=== PATIENT | female | born 1990 | race Caucasian/White ===

== ENCOUNTER → 2017-10-30 16:18 | Outpatient (CLI) | payer BC, SELFPAY ==
[2017-10-30 20:01] LABS: Chlamydia Trachomatis by PCR Negative (Negative); Neisserai gonorrhoeae by PCR Negative (Negative); Probe Check PASS; Sample Adequacy Control PASS; Specimen Processing Control PASS
[2017-11-05 13:44] LABS: HPV Reflexed? NOT INDICATED
== END ==
PROVIDERS: Visit Provider Obstetrics & Gynecology
DX: Z12.4 Encounter for screening for malignant neoplasm of cervix (principal); Z11.3 Encounter for screening for infections with a predominantly sexual mode of transmission
CPT/HCPCS: 87491; 87591; 88175; G0145; J2405

== ENCOUNTER → 2017-11-11 13:00 | Outpatient (CLI) | payer BC, SELFPAY ==
--- NOTE | 2017-11-11 13:00 | DT_ITS ---
This patient was seen during an EMR downtime November 10, 2017 - November 17, 2017. This patient may have a combination of paper and electronic documentation or all paper documentation. All documentation is viewable within the e-chart portion of [facility] for each patient visit.
[2017-11-18 05:56] LABS: hCG Titer Quant., Serum 11956 mIU/mL (<9 non-preg)
== END ==
PROVIDERS: Visit Provider Obstetrics & Gynecology
DX: N91.2 Amenorrhea, unspecified (principal)
CPT/HCPCS: 36415; 84702

== ENCOUNTER → 2017-11-15 10:13 | Outpatient (CLI) | payer BC, SELFPAY ==
--- NOTE | 2017-11-15 10:13 | DT_ITS ---
This patient was seen during an EMR downtime November 10, 2017 - November 17, 2017. This patient may have a combination of paper and electronic documentation or all paper documentation. All documentation is viewable within the e-chart portion of [employer] for each patient visit.
[2017-11-15 12:39] LABS: hCG Titer Quant., Serum 5261 mIU/mL (<9 non-preg)
== END ==
PROVIDERS: Visit Provider Obstetrics & Gynecology
DX: N91.2 Amenorrhea, unspecified (principal)
CPT/HCPCS: 36415; 84702

== ENCOUNTER 2017-11-17 08:25 | Day surgery (SDC) | payer BC, SELFPAY ==
--- NOTE | 2017-11-17 | POC_PTH ---
PATIENT: GINA CONKLIN [place] [facility] [id number] AGE/SX: 27/F ROOM: RE11/17/[address]: Dr. Leo Navarrete MD : 1990 BED: DIS: 11/17/2017 SPEC #: [id number] RECD: 11/17/17 14:01 STATUS: PATO FRANZEdgar #: [id number] CHARITY: 11/17/17 00:[address]: Leo Navarrete DEPT: SURGICAL PATHOLOGY RECD BY: Deven Matamoros ENTERED: 11/17/17 14:02 SP TYPE: PROD CONC OTHR DR: Dr. Cruzito Irwin MD Tissues: Product of conception, NOS Procedures: Surgery Specimen Level IV HEADER OPERATION: Suction D & C PRE-OP DIAGNOSIS: Missed TISSUE SUBMITTED: Products of conception MICROSCOPIC DIAGNOSIS Products of conception: Decidua and gestational endometrium. See comment. DONAVAN:felicita 11/18/17 COMMENT The entire specimen is examined. Chorionic villi are not identified in the submitted specimen. Results called to Dr. Navarrete?s office 11/18/17. MICROSCOPIC DESCRIPTION Slides are reviewed. GROSS DESCRIPTION Received in fixative is one container labeled with the patient's name and designated products of conception. The specimen consists of multiple fragments of ugarte hemorrhagic soft tissue that in aggregate measure 5 x 3 x 0.3 cm. No tissue is identified. The entire specimen is submitted in two cassettes. / SJ:felicita 11/17/17 TC:5 CPT: 96707
--- NOTE | 2017-11-17 08:25 | DT_ITS ---
This patient was seen during an EMR downtime November 10, 2017 - November 17, 2017. This patient may have a combination of paper and electronic documentation or all paper documentation. All documentation is viewable within the e-chart portion of [employer] for each patient visit.
== END 2017-11-17 12:12 | disposition home or self-care (01) ==
PROVIDERS: Family Provider Family Medicine; PCP Family Medicine; Visit Provider Obstetrics & Gynecology
PROC: (CPT 59812; principal; 2017-11-17 07:15)
DX: O02.0 Blighted ovum and nonhydatidiform mole (principal); O03.4 Incomplete spontaneous abortion without complication; Z3A.00 Weeks of gestation of pregnancy not specified
CPT/HCPCS: 01965; 59812; 88305; J7120

== ENCOUNTER → 2018-02-03 18:03 | Outpatient (CLI) | payer BC, SELFPAY | PROVIDERS: Family Provider Family Medicine; PCP Family Medicine; Visit Provider Obstetrics & Gynecology | DX: N39.0 Urinary tract infection, site not specified (principal) | CPT/HCPCS: 87086; 87088 ==

== ENCOUNTER → 2018-02-12 13:05 | Outpatient (CLI) | payer BC, SELFPAY ==
[2018-02-12 16:39] LABS: Chlamydia Trachomatis by PCR Negative (Negative); Neisserai gonorrhoeae by PCR Negative (Negative); Probe Check PASS; Sample Adequacy Control PASS; Specimen Processing Control PASS
== END ==
PROVIDERS: Visit Provider Obstetrics & Gynecology
DX: Z11.3 Encounter for screening for infections with a predominantly sexual mode of transmission (principal)
CPT/HCPCS: 87491; 87591

== ENCOUNTER → 2018-04-06 16:27 | Outpatient (CLI) | payer BC, SELFPAY ==
[2018-04-06 17:14] LABS: Absolute Lymphocyte Count 1.89 X10^3/ul (0.83-4.51); Absolute Neutrophil Count 5.7 X10^3/uL (2.0-7.7); Basophil# 0.01 X10^3/uL; Basophil% 0.1 % (0-1); Eosinophil# 0.05 X10^3/uL; Eosinophils% 0.6 % (0-5); Hematocrit 40.3 % (37-47); Hemoglobin 13.7 g/dl (12.0-15.0); Lymphocyte # 1.89 X10^3/ul (4.0); Lymphocyte % 23.5 % (19-41); Mean Corpuscular Volume 88.4 fL (81-99); Mean Platelet Vol. 11.4 fl (6.2-12.0); Monocyte# 0.43 X10^3/uL; Monocyte% 5.3 % (0-10); Neutrophil # 5.65 X10^3/uL (2.7-7.7); Neutrophil % 70.3 % (47-70); Platelet Count 244 K/mm3 (150-450); RBC Distribution Width CV 13.8 % (11.6-14.6); RBC Distribution Width SD 43.9 fl (35.1-43.9); Red Blood Count 4.56 M/mm3 (4.2-5.4); White Blood Count 8.1 K/mm3 (4.4-11.0)
[2018-04-06 17:17] LABS: POSITIVE COUNT NO; POSITIVE DIFFERENTIAL NO; POSITIVE MORPHOLOGY NO
[2018-04-06 17:29] LABS: Color, Urine Yellow (Yellow); Glucose, Dipstick Normal (Normal); Ketone-Dipstick Negative (Negative); Leukocyte Esterase-Dipstick 100 /ul (Negative); Nitrite-Dipstick Negative (Negative); Occult Blood-Urine 10 /ul (Negative); Protein-Dipstick Negative (Negative); Specific Gravity, Urine 1.025 (1.002-1.030); Urine Bilirubin Dipstick Negative (Negative); Urine Clarity Sl. Cloudy (Clear); Urine Urobilinogen Normal (Normal)
[2018-04-06 17:44] LABS: Thyroid Stim Hormone (TSH) 1.12 uIU/mL (0.358-3.74)
[2018-04-06 17:53] LABS: Amphetamine Urine VISTA NEGATIVE (<1000 ng/mL); Barbiturate Urine VISTA NEGATIVE (< 200 ng/mL); Benzodiazepine Urine VISTA NEGATIVE (< 200 ng/mL); Cocaine Urine VISTA NEGATIVE (< 300 ng/mL); Ecstacy Urine VISTA NEGATIVE (< 500 ng/mL); Methadone Urine VISTA NEGATIVE (< 300 ng/mL); PCP Urine VISTA NEGATIVE (< 25 ng/mL); THC Urine VISTA NEGATIVE (< 50 ng/mL); Vista UDS pH Range 5
[2018-04-06 18:37] LABS: HIV - WCH Non-Reactive (Nonreactive); Rubella IgG 170.9 IU/mL
[2018-04-08 10:24] LABS: HEPATITIS B SURFACE AG Negative (Negative); Hep C Antibodies <0.1 s/co ratio (0.0-0.9)
[2018-04-10 01:58] LABS: Prenatal RPR NONREACTIVE (NONREACTIVE)
== END ==
PROVIDERS: Visit Provider Obstetrics & Gynecology
DX: Z34.81 Encounter for supervision of other normal pregnancy, first trimester (principal)
CPT/HCPCS: 36415; 80307; 81002; 84443; 85025; 86703; 86762; 86803; 87340

== ENCOUNTER → 2018-04-27 17:14 | Outpatient (CLI) | payer BC, SELFPAY ==
[2018-04-30 04:09] LABS: AFP Value-EIA 29.2 ng/mL (.); Comment Report (.); DIA MoM Value 2.56 (.); DIA Value-EIA 358.61 pg/mL (.); DSR (By Age) 724 (.); DSR (Second Trimester) 555 (.); Gestat. Age Based On As provided (.); Gestational Age 15.3 WEEKS (.); Insulin Dep Diabetes No (.); Maternal Age At EDD 29.7 yr (.); hCG MoM 3.63 (.)
== END ==
PROVIDERS: Visit Provider Obstetrics & Gynecology
DX: Z34.81 Encounter for supervision of other normal pregnancy, first trimester (principal)
CPT/HCPCS: 36415; 82105; 82677; 84702; 86336

== ENCOUNTER → 2018-07-24 10:06 | Outpatient (CLI) | payer BC, SELFPAY ==
[2018-07-24 11:40] LABS: Hematocrit 35.2 % (37-47); Hemoglobin 11.5 g/dl (12.0-15.0); Mean Corp Hgb Conc 32.7 g/gl (32-36); Mean Corpuscular Volume 94.9 fL (81-99); Mean Platelet Vol. 11.2 fl (6.2-12.0); Platelet Count 203 K/mm3 (150-450); RBC Distribution Width CV 13.1 % (11.6-14.6); RBC Distribution Width SD 43.6 fl (35.1-43.9); Red Blood Count 3.71 M/mm3 (4.2-5.4); White Blood Count 6.8 K/mm3 (4.4-11.0)
[2018-07-24 11:41] LABS: Scan Indicated on CBC? Y/N NO
[2018-07-24 13:38] LABS: Glucose Challenge Gest 1H 50g 142 mg/dL (70-140)
== END ==
PROVIDERS: Visit Provider Obstetrics & Gynecology
DX: Z34.83 Encounter for supervision of other normal pregnancy, third trimester (principal)
CPT/HCPCS: 36415; 82950; 85027

== ENCOUNTER → 2018-07-31 06:47 | Outpatient (CLI) | payer BC, SELFPAY ==
[2018-07-31 07:54] LABS: Glucose GTT-Gestation. Fasting 98 mg/dL (<105)
[2018-07-31 08:51] LABS: Glucose GTT-Gestational 1 Hr 160 mg/dL (<190)
[2018-07-31 10:43] LABS: Glucose GTT-Gestational 2 Hr 159 mg/dL (<165)
[2018-07-31 10:50] LABS: Glucose GTT-Gestational 3 Hr 134 L (<145)
== END ==
PROVIDERS: Family Provider Family Medicine; PCP Family Medicine; Referring Provider Obstetrics & Gynecology; Visit Provider Obstetrics & Gynecology
DX: O24.912 Unspecified diabetes mellitus in pregnancy, second trimester (principal); Z3A.00 Weeks of gestation of pregnancy not specified
CPT/HCPCS: 36415; 82951; 82952

== ENCOUNTER 2018-09-07 11:20 | Outpatient (CLI) | payer BC, SELFPAY ==
[2018-09-07 12:45] VITALS: BMI 36.1
[2018-09-07 13:23] LABS: Mucous, Urine 0 SEEN /hpf (<or=2+); Red Blood Cells-Urine 0 SEEN /hpf (0-5)
[2018-09-07 13:33] LABS: Color, Urine Yellow (Yellow); Glucose, Dipstick Normal (Normal); Ketone-Dipstick Negative (Negative); Leukocyte Esterase-Dipstick 500 /ul (Negative); Nitrite-Dipstick Negative (Negative); Occult Blood-Urine Negative /ul (Negative); Protein-Dipstick Negative (Negative); Urine Bilirubin Dipstick Negative (Negative); Urine Clarity Cloudy (Clear); Urine Urobilinogen Normal (Normal)
[2018-09-07] MEDS: Betamethasone/Betamethasone 30 MG/5 ML Vial 12 MG IM (13:33)
[2018-09-07 13:43] LABS: Bacteria 2+ /hpf (None Seen); Squamous Epithelial Cells - UA 0-5 SEEN /hpf (5-10); White Blood Cells 25-50 SEEN /hpf (0-5)
--- NOTE | 2018-09-07 17:53 | OB.TRI.NOTE ---
History of Present Illness Date of Service: 09/07/18 Was patient seen by the physician?: Yes Reason For Visit: R/O LABOR Date of Service: 09/07/18 Final GEOFF: 10/16/18 Final GEOFF Source: US <20 weeks Gestational age: 34 Weeks and 3 Days History of Present Illness: 28 yo with h/o prior 35 wk delivery. presents for labor check with CC of off and on cramping starting 3 d ago. not sure if labor or not. Offered and declined weekly progesterone injections . denies any N/V/D no UTI sx. Cervix closed at last appt with Dr Navarrete. Allergies sulfamethoxazole [From Bactrim] Adverse Reaction (Verified 12/30/16 01:34) Hives trimethoprim [From Bactrim] Adverse Reaction (Verified 12/30/16 01:34) Hives Laboratory Studies: Laboratory Tests 09/07/18 Range/Units 13:15 Urine Color Yellow (Yellow) Urine Clarity Cloudy (Clear) Urine pH 7.0 (5.0 - 8.0) Ur Specific [place] 1.010 (1.002-1.030) Urine Protein Negative (Negative) mg/dl Urine Glucose (UA) Normal (Normal) mg/dl Urine Ketones Negative (Negative) mg/dl Urine Occult Blood Negative (Negative) /ul Urine Nitrite Negative (Negative) Urine Bilirubin Negative (Negative) mg/dL Urine Urobilinogen Normal (Normal) mg/dl Ur Leukocyte Esterase 500 H (Negative) /ul Urine RBC 0 SEEN (0-5) /hpf Urine WBC 25-50 SEEN (0-5) /hpf Ur Squamous Epith Cells 0-5 SEEN (5-10) /hpf Urine Bacteria 2+ (None Seen) /hpf Urine Mucus 0 SEEN (<or=2+) /hpf Review of Systems Constitutional: Denies: Anorexia Gastrointestinal: Denies: Constipation, Diarrhea Genitourinary: Reports: Frequency - drinking a lot. Denies: Dysuria Physical Exam General: Alert, Oriented x3, Cooperative, No apparent distress HEENT: Atraumatic Abdomen: Soft, Non Tender, Gravid Neurological: Cranial nerves II-XII grossly intact SALES DEVELOPMENT MANAGER: Normal external genitalia Presentation: Cephalic Cervix Dilation (cm): 2 Station: -3 Effacement (%): 50 - no change in dilation 75% effaced then after all day observation. NST - FHR Rate Baby A Baseline: 130-140s avg with accels. Variability:: Moderate Accelerations:: 15 x 15 Decelerations:: None NST Reactive:: Yes, Appropriate for gestational age FHR Category:: Category I Uterine Activity:: Irreg UCs poor pickle maker at times. q 3-4 mins at times. Off and on per pt Impression/Plan 34 3/7 wk UCs vs early prodromal labor. no change in dilation on observation 2 cm. Further effacement noted. Vtx and high Betamethasone given UA sent and suspect UTI. Will send for culture Keflex 500 mg po bid Procardia 20 mg po x one now RX sent for Procardia 10 mg po q 4 hr prn UCs. Home if stable. Return on 09/08/18 for second dose of betamethasone Keflex bid Bedrest at home until 35 wks. Office appt at 35 wks. 09/10/18 as planned. Return to hospital if inc s/sx of labor prior to 09/10/18 visit.
--- NOTE | 2018-09-07 17:57 | OB.TRI.HP_ITS ---
History of Present Illness Date of Service: 09/07/18 Was patient seen by the physician?: Yes Reason For Visit: R/O LABOR Date of Service: 09/07/18 Final GEOFF: 10/16/18 Final GEOFF Source: US <20 weeks Gestational age: 34 Weeks and 3 Days History of Present Illness: 28 yo with h/o prior 35 wk delivery. presents for labor check with CC of off and on cramping starting 3 d ago. not sure if labor or not. Offered and declined weekly progesterone injections . denies any N/V/D no UTI sx. Cervix closed at last appt with Dr Navarrete. Allergies sulfamethoxazole [From Bactrim] Adverse Reaction (Verified 12/30/16 01:34) Hives trimethoprim [From Bactrim] Adverse Reaction (Verified 12/30/16 01:34) Hives Laboratory Studies: Laboratory Tests 09/07/18 Range/Units 13:15 Urine Color Yellow (Yellow) Urine Clarity Cloudy (Clear) Urine pH 7.0 (5.0 - 8.0) Ur Specific [place] 1.010 (1.002-1.030) Urine Protein Negative (Negative) mg/dl Urine Glucose (UA) Normal (Normal) mg/dl Urine Ketones Negative (Negative) mg/dl Urine Occult Blood Negative (Negative) /ul Urine Nitrite Negative (Negative) Urine Bilirubin Negative (Negative) mg/dL Urine Urobilinogen Normal (Normal) mg/dl Ur Leukocyte Esterase 500 H (Negative) /ul Urine RBC 0 SEEN (0-5) /hpf Urine WBC 25-50 SEEN (0-5) /hpf Ur Squamous Epith Cells 0-5 SEEN (5-10) /hpf Urine Bacteria 2+ (None Seen) /hpf Urine Mucus 0 SEEN (<or=2+) /hpf Review of Systems Constitutional: Denies: Anorexia Gastrointestinal: Denies: Constipation, Diarrhea Genitourinary: Reports: Frequency - drinking a lot. Denies: Dysuria Physical Exam General: Alert, Oriented x3, Cooperative, No apparent distress HEENT: Atraumatic Abdomen: Soft, Non Tender, Gravid Neurological: Cranial nerves II-XII grossly intact QUALITY ENGINEER MEDICAL DEVICE: Normal external genitalia Presentation: Cephalic Cervix Dilation (cm): 2 Station: -3 Effacement (%): 50 - no change in dilation 75% effaced then after all day observation. NST - FHR Rate Baby A Baseline: 130-140s avg with accels. 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 q 3-4 mins at times. Off and on per pt Impression/Plan 34 3/7 wk UCs vs early prodromal labor. no change in dilation on observation 2 cm. Further effacement noted. Vtx and high Betamethasone given UA sent and suspect UTI. Will send for culture Keflex 500 mg po bid Procardia 20 mg po x one now RX sent for Procardia 10 mg po q 4 hr prn UCs. Home if stable. Return on 09/08/18 for second dose of betamethasone Keflex bid Bedrest at home until 35 wks. Office appt at 35 wks. 09/10/18 as planned. Return to hospital if inc s/sx of labor prior to 09/10/18 visit.
[2018-09-07] MEDS: NIFEdipine 10 MG Capsule 20 MG PO (18:18)
[2018-09-07] MEDS: Cephalexin 250 MG Capsule 500 MG PO (18:54)
== END 2018-09-07 19:53 | disposition home or self-care (01) ==
LOC: WPOUT 11:39 → WP 11:40
PROVIDERS: Family Provider Family Medicine; PCP Family Medicine; Referring Provider Obstetrics & Gynecology; Visit Provider Obstetrics & Gynecology
DX: O09.213 Supervision of pregnancy with history of pre-term labor, third trimester (principal); Z3A.34 34 weeks gestation of pregnancy
CPT/HCPCS: 59025; 59050; 81001; 87086; 87088; 99218; G0378; J0702

== ENCOUNTER 2018-09-08 13:45 | Outpatient (CLI) | payer BC, SELFPAY ==
[2018-09-07 12:45] VITALS: BMI 36.1
[2018-09-08 13:52] VITALS: BMI 35.6
[2018-09-08] MEDS: Betamethasone/Betamethasone 30 MG/5 ML Vial 12 MG IM (14:37)
--- NOTE | 2018-09-09 07:56 | OB.TRI.NOTE ---
History of Present Illness Date of Service: 09/08/18 Was patient seen by the physician?: No Reason For Visit: CELESTONE INJECTION Date of Service: 09/08/18 Final GEOFF: 10/16/18 Final GEOFF Source: US <20 weeks Gestational age: 34 Weeks and 5 Days History of Present Illness: Observed for labor on 09/07 given first celestone injection. Returns today for second celestone injection. Allergies sulfamethoxazole [From Bactrim] Adverse Reaction (Verified 09/08/18 13:52) Hives trimethoprim [From Bactrim] Adverse Reaction (Verified 09/08/18 13:52) Hives Physical Exam General: Alert, Oriented x3, Cooperative, No apparent distress Abdomen: Soft, Non Tender, Non-Distended, Gravid, Appropriate for Gestational Age NST - FHR Rate Baby A Baseline: not done Impression/Plan 35+ weeks for second celestone injection. No signs of labor.
== END 2018-09-08 15:15 | disposition home or self-care (01) ==
LOC: WPOUT 13:49 → WP 13:51
PROVIDERS: Family Provider Family Medicine; PCP Family Medicine; Referring Provider Obstetrics & Gynecology; Visit Provider Obstetrics & Gynecology
DX: O60.03 Preterm labor without delivery, third trimester (principal); Z3A.34 34 weeks gestation of pregnancy
CPT/HCPCS: 96372; 99218; G0378; J0702

== ENCOUNTER → 2018-09-11 13:52 | Outpatient (CLI) | payer BC, SELFPAY ==
[2018-09-08 13:52] VITALS: BMI 35.6
== END ==
PROVIDERS: Visit Provider Obstetrics & Gynecology
DX: Z36.85 Encounter for antenatal screening for Streptococcus B (principal)
CPT/HCPCS: 87081

== ENCOUNTER 2018-10-04 15:30 | Outpatient (CLI) | payer BC, SELFPAY ==
[2018-10-04 15:46] VITALS: BMI 35.9
[2018-10-04 16:26] LABS: ROM Internal Control Test YES-OK TO RESULT pt. (Internal QC); ROM Patient Test Negative (Negative)
--- NOTE | 2018-10-14 09:09 | OB.TRI.NOTE ---
History of Present Illness Date of Service: 10/04/18 Was patient seen by the physician?: No Reason For Visit: RULE OUT SROM Date of Service: 10/04/18 Final GEOFF: 10/16/18 Final GEOFF Source: US <20 weeks Gestational age: 38 Weeks and 2 Days History of Present Illness: 38+ week intrauterine presents with some leaking of fluid. Concerned that her water may be broke. Allergies sulfamethoxazole [From Bactrim] Adverse Reaction (Verified 10/08/18 16:16) Hives trimethoprim [From Bactrim] Adverse Reaction (Verified 10/08/18 16:16) Hives - Pertinent Past Medical History Medical History: Past Medical History (Last Updated 10/09/18 @ 07:45 by Mandie Ray MD) premature rupture of membranes (PPROM) delivered, current hospitalization (Inactive) 35 weeks gestation of (Inactive) Laboratory Studies: Laboratory Tests 10/04/18 Range/Units 16:00 Vag Amniotic Fld Detect Negative (Negative) NST - FHR Rate Baby A NST Reactive:: Yes FHR Category:: Category I Impression/Plan 38+ week intrauterine with vaginal discharge. ROM test negative. Reactive nonstress test. Continue routine care.
== END 2018-10-04 19:00 | disposition home or self-care (01) ==
LOC: WPOUT 15:32 → WP 15:34
PROVIDERS: Visit Provider Obstetrics & Gynecology
DX: O26.893 Other specified pregnancy related conditions, third trimester (principal); N89.8 Other specified noninflammatory disorders of vagina; Z3A.38 38 weeks gestation of pregnancy
CPT/HCPCS: 59025; 59050; 84112; 99218; G0378

== ENCOUNTER 2018-10-08 15:15 | Inpatient (IN) | payer BC, SELFPAY ==
[2018-10-08 14:41] VITALS: BMI 36.2
[2018-10-08 16:08] LABS: Absolute Lymphocyte Count 1.98 X10^3/ul (0.83-4.51); Absolute Neutrophil Count 6.2 X10^3/uL (2.0-7.7); Basophil# 0.01 X10^3/uL; Basophil% 0.1 % (0-1); Eosinophil# 0.02 X10^3/uL; Eosinophils% 0.2 % (0-5); Hematocrit 38.9 % (37-47); Hemoglobin 12.7 g/dl (12.0-15.0); Lymphocyte # 1.98 X10^3/ul (4.0); Lymphocyte % 22.3 % (19-41); Mean Corp Hgb Conc 32.6 g/gl (32-36); Mean Corpuscular Hgb 28.3 pg (27.0-32.0); Mean Corpuscular Volume 86.8 fL (81-99); Mean Platelet Vol. 11.8 fl (6.2-12.0); Monocyte% 7.9 % (0-10); Neutrophil # 6.15 X10^3/uL (2.7-7.7); Neutrophil % 69.3 % (47-70); Platelet Count 249 K/mm3 (150-450); RBC Distribution Width CV 14.5 % (11.6-14.6); RBC Distribution Width SD 44.2 fl (35.1-43.9); Red Blood Count 4.48 M/mm3 (4.2-5.4); White Blood Count 8.9 K/mm3 (4.4-11.0)
[2018-10-08 16:09] LABS: POSITIVE COUNT NO; POSITIVE DIFFERENTIAL NO; POSITIVE MORPHOLOGY NO
[2018-10-08] MEDS: Lactated Ringers 1,000 ML 50 ML IV (16:50)
[2018-10-08] MEDS: Oxytocin 30 units/NS 500 ml 30 UNITS/500 ML IV.SOLN 334 UNITS IV (17:43)
--- NOTE | 2018-10-08 17:53 | PCM.OPRPT ---
Vaginal Delivery Maternal Presentation: Active Labor 38 6/7 wk labor Amniotic Membrane Rupture Type: Artificial Amniotic Fluid Description: Clear Final GEOFF: 10/16/18 Final GEOFF Source: US <20 weeks Gestational age: 38 Weeks and 6 Days Date of Procedure: 10/08/18 Pre-Operative Diagnosis: 38 6/7 wk labor Post-Operative Diagnosis: same Surgery/ Procedure Performed: Spontaneous Vaginal Delivery Type of Anesthesia: None Description of Procedure: of a lima viable male over intact perineum to laceration. Head delivered DIDI OP and nares bulb suctioned on perineum No nuchal cord. Shoulders delivered easily. infant, vigorous and crying, to maternal abdomen. Delayed cord clamping , then cord clamped x two and cut. PP exam: posterior vaginal and perineal 2nd deg laceration. repaired under 1% lidocaine local to hemostatic, intact with 3-0 Vicryl No other lacerations noted. EBL 250 cc Pt and infant tolerated delivery we'll To recovery, stable condition. Raytec and needle counts correct x two. Presentation: Vertex, DIDI Placental Delivery Description: Spontaneous, Expressed Placenta Disposition: [facility] Cord Vessel Description: 3 Vessels Cord Entanglement: None Estimated Blood Loss: 250 A gender: Male (1 minute): 9 (5 minute): 9 Episiotomy Description: None Laceration: Midline, Perineal Extension/lac, Vaginal Extension/lac, 2nd degree Medications given after delivery: IV Pitocin Complications: None
--- NOTE | 2018-10-08 17:58 | PCM.DCVAG ---
Discharge Diet: No Restrictions May resume sexual activity in: 4-6 weeks Additional Activity Instructions:: Nothing in the vagina for 4-6 weeks. You may return to work/school in 6 weeks. Additional Instructions: If you experience any of the following, contact your healthcare provider. Bleeding that soaks a pad every hour for 2 hours Fever 100.4 or higher Unrelieved abdominal pain Problems urinating (including inability to urinate or burning while urinating). Visual changes Severe headache Flu-like symptoms Pain or redness in one of both of your breasts Pain, warmth, tenderness or swelling in your legs, especially the calf area Frequent nausea and vomiting Symptoms of depression or anxiety If you experience any of the following, call 911 or go to the nearest Emergency Room. Chest pain Problems breathing Seizure activity Partial or complete paralysis of a body part, slurred speech, weakness or drooping of the face, or a sudden inability to walk or hold your balance Allergies/Adverse Reactions: Allergies sulfamethoxazole [From Bactrim] Adverse Reaction (Verified 10/08/18 16:16) Hives trimethoprim [From Bactrim] Adverse Reaction (Verified 10/08/18 16:16) Hives Medications to take at Discharge Vitamins 1 tab PO DAILY 11/11/16 Doxylamine Succinate [Unisom] 25 mg PO QHS 09/08/18 Please Follow Up With: Leo Navarrete MD - [phone] When: Call to make an appointment with your doctor in 6 weeks. Test Results: Test results from this visit will be discussed in further detail at your follow-up appointment, if applicable. Proposed Discharge Date: 10/10/18
--- NOTE | 2018-10-08 17:59 | DCINST_ITS ---
Discharge Diet: No Restrictions May resume sexual activity in: 4-6 weeks Additional Activity Instructions:: Nothing in the vagina for 4-6 weeks. You may return to work/school in 6 weeks. Additional Instructions: If you experience any of the following, contact your healthcare provider. * Bleeding that soaks a pad every hour for 2 hours * Fever 100.4 or higher * Unrelieved abdominal pain * Problems urinating (including inability to urinate or burning while ur inating). * Visual changes * Severe headache * Flu-like symptoms * Pain or redness in one of both of your breasts * Pain, warmth, tenderness or swelling in your legs, especially the calf area * Frequent nausea and vomiting * Symptoms of depression or anxiety If you experience any of the following, call 911 or go to the nearest Emergency Room. * Chest pain * Problems breathing * Seizure activity * Partial or complete paralysis of a body part, slurred speech, weakness or drooping of the face, or a sudden inability to walk or hold your balance Allergies/Adverse Reactions: Allergies sulfamethoxazole [From Bactrim] Adverse Reaction (Verified 10/08/18 16:16) Hives trimethoprim [From Bactrim] Adverse Reaction (Verified 10/08/18 16:16) Hives Medications to take at Discharge Vitamins 1 tab PO DAILY 11/11/16 Doxylamine Succinate [Unisom] 25 mg PO QHS 09/08/18 Please Follow Up With: Leo Navarrete MD - [phone] When: Call to make an appointment with your doctor in 6 weeks. Test Results: Test results from this visit will be discussed in further detail at your follow- up appointment, if applicable. Proposed Discharge Date: 10/10/18
[2018-10-08] MEDS: Oxytocin 30 units/NS 500 ml 30 UNITS/500 ML IV.SOLN 167 UNITS IV (18:15)
[2018-10-08] MEDS: Ibuprofen 600 MG Tablet PO (19:15)
[2018-10-08] MEDS: 0.9% Saline Lock 10 ML Syringe IV (19:17)
[2018-10-08 19:55] VITALS: BP 130/76; PULSE 76; RESP 18; TEMP 36.8; O2SAT 97
[2018-10-08] MEDS: Acetaminophen 500 MG Tablet 1000 MG PO (20:15)
[2018-10-09] VITALS: BP 114/69; PULSE 77; RESP 18; TEMP 36.4; O2SAT 97
[2018-10-09 03:07] VITALS: BP 107/65; PULSE 74; RESP 18; TEMP 36.5; O2SAT 98
[2018-10-09] MEDS: Ibuprofen 600 MG Tablet PO ×3 (07:22→19:57)
--- NOTE | 2018-10-09 07:44 | PCM.PN.OB ---
Patient Problems: Active and Suspected Problems (spontaneous vaginal delivery) (Acute) Subjective: PPD#1 Doing well. Nursing well. baby was 2# more than her first. Feels minimal pain and bleeding is not more than a heavy period. no clots passed. Cramping with nursing, but manageable with meds. Unmedicated labor and delivery (d/t inability to place epidural, narrow spaces) Objective: Sitting up in bed nursing infant - Physical Exam General: Alert, Oriented x3, Cooperative, No apparent distress HEENT: Atraumatic, PERRLA, EOMI Neck: Supple Psych/Mental Status: Normal Affect Vital Signs Temp Pulse Resp BP Pulse Ox 97.7 F L 74 18 107/65 98 10/09/18 03:07 10/09/18 03:07 10/09/18 03:07 10/09/18 03:07 10/09/18 03:07 Oxygen Delivery Method Room Air Weight: 111.3 kg Body Mass Index (BMI) 36.2 Intake and Output for Last 24 Hours 10/07/18 10/08/18 10/09/18 23:59 23:59 23:59 Intake Total 2019 Output Total 200 / 200 Balance 1820 / 1820 Laboratory Tests Past 24 Hrs 10/08/18 10/08/18 15:47 15:47 WBC 8.9 RBC 4.48 Hgb 12.7 Hct 38.9 MCV 86.8 MCH 28.3 MCHC 32.6 RDW 14.5 RDW Differential 44.2 H Plt Count 249 MPV 11.8 Immature Gran % (Auto) 0.200 Neut % (Auto) 69.3 Lymph % (Auto) 22.3 [place] % (Auto) 7.9 Eos % (Auto) 0.2 Baso % (Auto) 0.1 Absolute Neuts (auto) 6.2 Absolute Lymphs (auto) 1.98 Total Counted Not Reportable Blood Type A POSITIVE Antibody Screen NEGATIVE Medical Necessity - Tobacco Use Smoking Status: Never smoker Assessment/Plan All Active Problems (spontaneous vaginal delivery) (Acute) PPD#1 Stable pp. continue routine care. Plans to stay until PPD#2
[2018-10-09 07:45] VITALS: BP 123/82; PULSE 77; RESP 16; TEMP 36.3
[2018-10-09] MEDS: Acetaminophen 500 MG Tablet 1000 MG PO (10:18)
[2018-10-09] MEDS: Prenatal Vits Tablet 1 TABLET PO (11:22)
[2018-10-09 11:29] VITALS: BP 119/74; PULSE 90; RESP 16; TEMP 36.4
[2018-10-09] MEDS: Senna/Docusate Sodium 1 Tablet PO (13:33)
[2018-10-09 15:22] VITALS: BP 110/63; PULSE 77; RESP 16; TEMP 36.4
[2018-10-09 20:05] VITALS: BP 109/72; PULSE 74; RESP 18; TEMP 36.6; O2SAT 98
[2018-10-10 01:24] VITALS: BP 109/65; PULSE 84; RESP 16; TEMP 36.9; O2SAT 97
--- NOTE | 2018-10-10 02:45 | NURSING ---
Patient reporting heartburn requesting medication, dr sauceda updated, mylanta ordered
[2018-10-10] MEDS: Mag Hydrox/Al Hydrox/Simeth 30 ML UDC PO (04:37)
[2018-10-10] MEDS: Senna/Docusate Sodium 1 Tablet PO (07:55)
[2018-10-10] MEDS: Ibuprofen 600 MG Tablet PO (07:56)
--- NOTE | 2018-10-10 08:37 | PCM.PROGNOTE ---
Patient Problems: Active and Suspected Problems (Last Updated 10/09/18 @ 07:45 by Mandie Ray MD) (spontaneous vaginal delivery) (Acute) Subjective: No specific complaints other than cramping with breast feeding. Bleeding light. Objective: Afeb VSS - Physical Exam General: Alert, Oriented x3, Cooperative, No apparent distress Lungs: Clear to auscultation, Normal air movement Cardiovascular: Regular rate, Regular Rhythm Abdomen: Soft, Non Tender, Non-Distended Extremities: No edema Skin: No rashes Neurological: Neuro grossly intact Psych/Mental Status: Normal Affect Comment: Lochia light Vital Signs Temp Pulse Resp BP Pulse Ox 98.5 F 84 16 109/65 97 10/10/18 01:24 10/10/18 01:24 10/10/18 01:24 10/10/18 01:24 10/10/18 01:24 Oxygen Delivery Method Room Air Weight: 245 lb 5.992 oz Body Mass Index (BMI) 36.2 Intake and Output for Last 24 Hours 10/08/18 10/09/18 10/10/18 23:59 23:59 23:59 Intake Total 2019 Output Total 200 / 200 Balance 1820 / 1820 Medical Necessity - Tobacco Use Smoking Status: Never smoker Assessment/Plan All Active Problems (Last Updated 10/09/18 @ 07:45 by Mandie Ray MD) (spontaneous vaginal delivery) (Acute) Doing well on PP day#2. Cleared for discharge home today. Home going instructions and warnings given.
--- NOTE | 2018-10-10 08:39 | PCM.DC.SUM ---
Discharge Date and Diagnosis - Problem List Patient Problems: Active and Suspected Problems (Last Updated 10/09/18 @ 07:45 by Mandie Ray MD) (spontaneous vaginal delivery) (Acute) Date of Admission: 10/08/18 Date of Discharge: 10/10/18 - Primary Discharge Diagnosis Active and Suspected Problems (Last Updated 10/09/18 @ 07:45 by Mandie Ray MD) (spontaneous vaginal delivery) (Acute) Hospital Course and Treatment Operations: None Procedures: - - Summary of Care Provided: The patient is a 28 year old F [admitted in labor. Progressed to FD then psuhed to deliver a live without complication. Post course unremarkable. Discharged home on PP day#2.] Patient Problems: Active and Suspected Problems (Last Updated 10/09/18 @ 07:45 by Mandie Ray MD) (spontaneous vaginal delivery) (Acute) - Physical Exam Vital Signs Temp Pulse Resp BP Pulse Ox 98.5 F 84 16 109/65 97 10/10/18 01:24 10/10/18 01:24 10/10/18 01:24 10/10/18 01:24 10/10/18 01:24 Oxygen Delivery Method Room Air Weight: 245 lb 5.992 oz Body Mass Index (BMI) 36.2 Intake and Output for Last 24 Hours 10/08/18 10/09/18 10/10/18 23:59 23:59 23:59 Intake Total 2019 / 2020 Output Total 200 / 200 Balance 1820 / 1820 Discharge Diet: No Restrictions May resume sexual activity in: 4-6 weeks Additional Activity Instructions:: Nothing in the vagina for 4-6 weeks. You may return to work/school in 6 weeks. Call your doctor if you observe: Fever of 101 or Higher, Inability to urinate, Inability to have a bowel movement, Using more than one pad per hour, Shortness of breath, Chest pain, Calf discomfort, Uncontrolled pain Cleanse incision/area with: Soap & Water Home Medications: Medications to take at Discharge Vitamins 1 tab PO DAILY 11/11/16 Doxylamine Succinate [Unisom] 25 mg PO QHS 09/08/18 Please Follow Up With: Leo Navarrete MD - [phone] When: 6 weeks Disposition: Home Minutes spent on discharge:: 15 Patient Condition:: Good Medical Necessity - Tobacco Use Smoking Status: Never smoker Meaningful Use Info Meaningful Use Diagnoses (Choose all that apply): None applicable
[2018-10-10 09:00] VITALS: BP 120/79; PULSE 87; RESP 18; TEMP 36.3
--- NOTE | 2018-10-10 13:04 | NURSING ---
1030 States she wants to go home today and feels able to care for herself and her baby. Discharged to [facility] with infant via wheelchair to car.
--- NOTE | 2018-10-16 16:32 | NURSING ---
follow up call done, patient reports a headache that I instructed her to call the dr and notify them because the headache doesn't always go away with tylenol or motrin. Has a visit tomorrow. Was satisfied with her care
== END 2018-10-10 10:30 | disposition home or self-care (01) | DRG 807 ==
LOC: WP 10-09 05:56
PROVIDERS: Admitting Provider Obstetrics & Gynecology; Referring Provider Obstetrics & Gynecology; Visit Provider Obstetrics & Gynecology
DX: O70.1 Second degree perineal laceration during delivery (principal); Z37.0 Single live birth; Z3A.39 39 weeks gestation of pregnancy
CPT/HCPCS: 59025; 59050; 85025; 86850; 86900; 99218; J7120; A4216; G0378